=== PATIENT | female | born 1995 | race Asian ===

== ENCOUNTER 2016-12-03 11:48 | Emergency (ER) | payer OTHER ==
[2016-12-03] MEDS ORDERED: cefTRIAXone 250 MG VIAL IM STA (12:41)
[2016-12-03] MEDS ORDERED: AZITHROMYCIN 250 MG TABLET PO STA ×2 (12:42→12:43)
[2016-12-03] MEDS ORDERED: AZITHROMYCIN 250 MG TABLET PO ONE (12:48)
[2016-12-03] MEDS ORDERED: cefTRIAXone 250 MG VIAL ONE (12:49)
== END 2016-12-03 14:03 | disposition home or self-care (01) ==
DX: Z11.3 Encounter for screening for infections with a predominantly sexual mode of transmission (principal); N89.8 Other specified noninflammatory disorders of vagina
CPT/HCPCS: 81001; 81025; 87210; 87220; 87491; 87591; 96372; 99283; A9270